=== PATIENT | male | born 1975 | race Caucasian/White ===

== ENCOUNTER 2021-04-17 01:08 | Emergency (ER) | payer OTHER, SELFPAY ==
--- NOTE | ~2021-04-17 | XR_ITS ---
EXAMINATION: XR finger 1st LT min 2V DATE: 04/17/2021 01:38 INDICATION: Left thumb laceration. TECHNIQUE: 3 views of left thumb were obtained. COMPARISON: None. FINDINGS: Bone alignment is normal. No fracture. There is mild osteoarthritis of first carpometacarpa l joint, first metacarpophalangeal joint, and first interphalangeal joint. There is soft tissue swell ing of the thumb. IMPRESSION: 1. Mild polyarticular osteoarthritis. Reviewed, dictated and finalized at location [facility]
[2021-04-17 01:27] VITALS: BP 132/81; PULSE 115; RESP 19; TEMP 36.6; O2SAT 98
[2021-04-17] MEDS: DOXYCYCLINE HYCLATE 100 MG TABLET PO (02:21)
[2021-04-17] MEDS: HYDROcodone/acetaminophen (*CRX) 5-325 MG TABLET 1 TAB PO (02:21)
--- NOTE | 2021-04-17 02:54 | ED.WOUNDLAC ---
HPI - Wound/Laceration General Chief Complaint: Wound/Laceration Stated Complaint: left thumb wound Time Seen by Provider: 04/17/21 01:36 History of Present Illness HPI narrative: Patient is a 45-year-old male who presents ER with swelling to the dorsal aspect of the distal phalanx of the left thumb. Reports 1 week ago he was sharpening a knife when he cut his thumb. He did not develop any swelling until yesterday. He has limited flexion at that joint. No numbness or tingling. Reports clear liquid drainage at times. Last tetanus shot 5 years ago. No fevers or chills or sweats. No streaking up his arm. Review of Systems Review of Systems: All systems reviewed & are unremarkable except as noted in HPI and below Constitutional: Constitutional: Denies chills and Denies fever(s) Musculoskeletal: Musculoskeletal: Denies back pain, Reports arthralgias, Reports joint swelling and Denies muscle cramps Integumentary/Breasts: Skin/Breast: Reports erythema, Denies rash and Denies skin ulcer Neurologic: Denies focal weakness and Denies numbness PMFSH Past Medical History Medical History (Updated 04/17/21 @ 03:02 by Teofilo Garrett MD) GERD (gastroesophageal reflux disease) Surgical History Surgical History (Updated 04/17/21 @ 02:59 by Teofilo Garrett MD) H/O eye surgery Social History Social History (Updated 04/17/21 @ 02:59 by Teofilo Garrett MD) Smoking status: Current every day smoker Exam Narrative: GENERAL: Well-appearing, well-nourished, and in no acute distress. HEAD: Normocephalic, atraumatic. ENT: Mucous membranes moist. HEART: Regular rate and rhythm. Normal peripheral pulses. EXTREMITIES: 2 cm healing laceration over the DIP of the left thumb. There is swelling around this with slight redness. No lymphangitic streaking. Limited flexion at the DIP of the affected finger. SKIN: Warm, dry, no rash. NEURO: Alert and oriented x3. PSYCH: Normal mood and affect. Course Course Emergency Course: A 21-gauge needle was inserted into the soft tissue swelling of the left thumb after thorough cleaning of the area. No pus could be aspirated or expressed from the area. Likely local reaction related to healing versus early infection. No abscess to drain. Will start on doxycycline. Vital Signs Vital signs: Vital Signs Temperature 97.8 F 04/17/21 01:27 Pulse Rate 115 H 04/17/21 01:27 Respiratory Rate 19 04/17/21 01:27 Blood Pressure 132/81 04/17/21 01:27 Pulse Oximetry 98 04/17/21 01:27 Temperature 97.8 F 04/17/21 01:27 Pulse Rate 115 H 04/17/21 01:27 Respiratory Rate 19 04/17/21 01:27 Blood Pressure 132/81 04/17/21 01:27 Pulse Oximetry 98 04/17/21 01:27 MDM - Wound/Laceration Imaging Data My impression: X-ray left thumb: No acute osseous process. Discharge Plan Discharge Clinical Impression: Infected finger laceration Patient Disposition: Home, Self-Care Condition: Stable Instructions: Wound Infection (ED) Additional Instructions: Return to the ER if you have fever over 100.4 ?F, you have red streaking up your hand/arm, your wound is draining thick yellow pus, or you have additional concerns. Is recommend you follow-up with a hand surgeon for further evaluation. 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
[2021-04-17 03:09] VITALS: PULSE 98; RESP 16; O2SAT 99
== END 2021-04-17 03:16 | disposition home or self-care (01) ==
PROVIDERS: Emergency Provider Emergency Medicine
DX: S61.012A Laceration without foreign body of left thumb without damage to nail, initial encounter (principal); L08.9 Local infection of the skin and subcutaneous tissue, unspecified; W26.0XXA Contact with knife, initial encounter
CPT/HCPCS: 73140; 99283; A9270

== ENCOUNTER 2021-04-26 00:06 | Inpatient (IN) | payer OTHER, SELFPAY ==
[2021-04-26] VITALS (15 sets, daily range): BP systolic 101–114; BP diastolic 48–77; PULSE 81–110; RESP 12–21; TEMP 36.1–37; O2SAT 98–100; BMI 24.2
--- NOTE | ~2021-04-26 | XR_ITS ---
EXAMINATION: XR hand LT min 3V DATE: 04/26/2021 01:37 INDICATION: Left thumb cellulitis. TECHNIQUE: 3 views of left hand were obtained. COMPARISON: Left thumb radiographs 04/17/2021 FINDINGS: Bone alignment is normal. No fracture. There is new osteopenia of base of first distal phal anx and head of first proximal phalanx with cortical erosions, consistent with osteomyelitis. There i s mild osteoarthritis of first interphalangeal joint and second and fourth distal interphalangeal justina nts. There is soft tissue swelling of the thumb. IMPRESSION: 1. Acute osteomyelitis involving the base of first distal phalanx and head of first proximal phalanx. Reviewed, dictated and finalized at location A. AND BEVERAGE CHECKER IMPRESSION: 1. Acute osteomyelitis involving the base of first distal phalanx and head of f irst proximal phalanx.
[2021-04-26] MEDS: SODIUM CHLORIDE 0.9% IV 1,000 ML 150 ML IV CONT (00:38)
[2021-04-26 00:56] LABS: Basophils Absolute Auto 0.1 K/mm3 (0.0-0.1); Eosinophils Absolute Auto 0.4 K/mm3 (0-0.3); Eosinophils Percent Auto 3.6 % (0-4.4); Hematocrit 36.5 % (42.0-52.0); Hemoglobin 12.2 g/dL (14.0-18.0); Immature Granulocyte Absolute 0.28 K/mm3 (0.00-0.031); Immature Granulocyte Percent A 2.9 % (0-0.5); Lymphocytes Absolute Auto 2.73 K/mm3 (0.9-3.2); Lymphocytes Percent Auto 28.1 % (18.3-44.2); Mean Corpuscular HGB Conc 33.4 g/dl (32-36); Mean Corpuscular Hemoglobin 30.2 pg (26-34); Mean Corpuscular Volume 90.3 fl (80-100); Mean Platelet Volume 8.5 fl (7.4-10.4); Monocytes Absolute Auto 0.8 K/mm3 (0.1-0.6); Monocytes Percent Auto 8.4 % (2.6-8.5); Neutrophils Absolute Auto 5.4 K/mm3 (1.3-6.7); Platelet Count Result 465 k/mm3 (150-375); Red Blood Count 4.04 M/mm3 (4.6-6.20); Red Cell Distribution Width 11.9 % (11.5-14.5); White Blood Count 9.7 K/mm3 (4.5-10.0)
[2021-04-26 01:11] LABS: Anion Gap 8 mmol/L (8-16); Blood Urea Nitrogen 23 mg/dL (9-20); CRP 7.1 mg/dL (<1.0); Calcium 9.3 mg/dL (8.4-10.2); Carbon Dioxide 30 mmol/L (22-30); Chloride 96 mmol/L (98-107); Estimated CRCL calculation 63 ml/min; Estimated Glomerular Filt Rate > 60; Glucose 124 mg/dL (65-110); Potassium 4.5 mmol/L (3.4-5.0); Sodium 134 mmol/L (137-145)
--- NOTE | 2021-04-26 01:13 | ED.GENADULT ---
HPI - General Adult General Chief complaint: Unspecified Stated complaint: thumb problem Time Seen by Provider: 04/26/21 00:11 Source: patient Mode of arrival: ambulatory Limitations: no limitations History of Present Illness HPI narrative: 45-year-old with no major medical problems here with complaints of pain and swelling and drainage from the left thumb. Patient states that approximately a week or 10 days ago he accidentally cut himself while sharpening a knife. He states he was here on April 17 and was given antibiotic which has not made much difference. He denies any fever or chills. Onset (ago): week(s) (1) Location: upper extremity (Left thumb) Severity: moderate Quality: aching Pain Consistency: constant Relieving factors: none Exacerbating factors: none Associated symptoms: denies other symptoms Treatments prior to arrival: none Related Data Allergies Allergy/AdvReac Type Severity Reaction Status Date / Time No Known Allergies Allergy Verified 04/26/21 00:27 Review of Systems Review of Systems: All systems reviewed & are unremarkable except as noted in HPI and below Constitutional: Constitutional: Reports no additional constitutional complaints Eyes: Eyes: Reports no additional eye complaints ENT: Reports system reviewed and no additional complaints, except as documented Cardiovascular: Cardiovascular: Reports no additional cardiovascular complaints Respiratory: Respiratory: Reports no additional respiratory complaints Gastrointestinal: Gastrointestinal: Reports no additional gastrointestinal complaints Musculoskeletal: Musculoskeletal: Reports as per HPI Integumentary/Breasts: Skin/Breast: Reports as per HPI Neurologic: Reports system reviewed and no additional complaints, except as documented PMFSH Past Medical History Medical History GERD (gastroesophageal reflux disease) Surgical History Surgical History H/O eye surgery Social History Social History Smoking status: Current every day smoker Exam Narrative: GENERAL: Well-appearing, well-nourished, and in no acute distress. HEAD: Normocephalic, atraumatic. EYES: PERRLA and EOMI. ENT: Nares clear, no rhinorrhea or epistaxis. Mucous membranes moist. NECK: Supple. CHEST: Clear to auscultation. No respiratory distress. HEART: Regular rate and rhythm. No murmur heard. Normal peripheral pulses. ABDOMEN: Soft, nontender, nondistended, normal active bowel sounds. EXTREMITIES: Normal range of motion. No edema. left thumb is swollen , tender , unable to bend , drainage . SKIN: Warm, dry, no rash. NEURO: No focal deficits. Alert and oriented x3. PSYCH: Normal mood and affect. Course Course Emergency Course: Inform patient about his lab work. Agreeable for admission discussed with Dr. Rebolledo and agreed to admit patient, will consult plastics in the morning. Vital Signs Vital signs: Vital Signs Temperature 36.6 C 04/26/21 00:16 Pulse Rate 99 04/26/21 00:16 Respiratory Rate 14 04/26/21 00:16 Blood Pressure 113/76 04/26/21 00:16 Pulse Oximetry 98 04/26/21 00:16 Temperature 36.6 C 04/26/21 00:16 Pulse Rate 96 04/26/21 01:04 Respiratory Rate 12 04/26/21 01:04 Blood Pressure 111/72 04/26/21 01:04 Pulse Oximetry 98 04/26/21 01:04 Medical Decision Making Vital Signs Vital Signs: Vital Signs Temperature 36.6 C 04/26/21 00:16 Pulse Rate 99 04/26/21 00:16 Respiratory Rate 14 04/26/21 00:16 Blood Pressure 113/76 04/26/21 00:16 Pulse Oximetry 98 04/26/21 00:16 Temperature 36.6 C 04/26/21 00:16 Pulse Rate 96 04/26/21 01:04 Respiratory Rate 12 04/26/21 01:04 Blood Pressure 111/72 04/26/21 01:04 Pulse Oximetry 98 04/26/21 01:04 Lab Data Result diagrams: 04/26/21 00:44 04/26/21 00:44
--- NOTE | 2021-04-26 03:14 | PM.IMHP ---
H&P: HPI History of Present Illness Date/Time: 04/26/21 03:14 Chief Complaint: Left thumb infection Narrative: 45-year-old male previously healthy who presented to the ER with worsening infection of laceration site on his left thumb. Approximately 04/20/2021 patient cut his thumb while sharpening a knife. He came to the ER on 04/17/2021 had x-ray of his thumb due to erythema. He did not have any active drainage of the thumb. He was prescribed doxycycline for possible infection and [place]. He was referred to hand surgeon for further evaluation. Despite completing most of his course of doxycycline the patient has had continued pain swelling and yellow drainage of the left thumb. He reports that he had taken a over half of the prescription for doxycycline when he got arrested on a warrant and when he was in senior care they took his doxycycline. He did not get his doxycycline back when he was released. He has not had any fevers or chills. He reports moderate to severe pain with movement of the thumb is aching and throbbing. He does snort heroin daily. He reports that he has multiple bad teeth. None of his teeth are currently hurting him. However he was having some tenderness in his ?glands? a few days back. He does not have any significant tenderness to palpation at the time of my evaluation currently. The patient denied any other significant medical history. However nursing staff reported the patient had significant snoring and witnessed apnea. When the later went back and asked the patient about medical history again he stated that he does use a CPAP at home. Review of Systems Review of Systems: 12 systems were reviewed with pertinent positives and negatives per HPI. Except as documented in the HPI, all other systems were reviewed and are negative. [facility] Past Medical History Medical History (Updated 04/26/21 @ 04:44 by Josette Mendosa DO) GERD (gastroesophageal reflux disease) Obstructive sleep apnea Surgical History Surgical History (Updated 04/26/21 @ 04:38 by Josette Mendosa DO) H/O eye surgery At 5 years old correct lazy eye Family History Family History Other No significant family history Social History Social History (Updated 04/26/21 @ 04:39 by Josette Mendosa DO) Social History: He is single and lives alone. 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 He has smoked a half a pack of cigarettes per day since the age of 15. He denies any significant alcohol use. He snorts heroin on a daily basis. Smoking packs per day: 0.5 Smoking cigarettes per day: 10.0 Years smoked: 30 Smoking pack-years: 15.00 Smoking status: Current every day smoker Tobacco type: cigarettes Alcohol intake: never Substance use: current Substance use type: marijuana and heroin Other substance usage details: 1-2x per week Spiritual care concerns: No Meds Home Medications and Allergies Home Medications Medication Instructions Recorded Confirmed Type No Home Medications 04/26/21 04/26/21 History Allergies Allergy/AdvReac Type Severity Reaction Status Date / Time No Known Allergies Allergy Verified 04/26/21 00:27 Vital Signs Vital Signs - 24 hr 04/26/21 00:16 04/26/21 01:04 04/26/21 02:54 Temperature 97.8 F Pulse Rate 99 96 91 Respiratory Rate 14 12 12 Blood Pressure 113/76 111/72 109/65 Pulse Oximetry 98 98 100 Exam Narrative: PHYSICAL EXAM: WEIGHT 65.9 kg BMI 24.9 General: No acute distress, well-developed well-nourished HEENT: Mucous membranes are moist, no oral pharyngeal erythema, pupils are equal and reactive Respiratory: Clear to auscultation bilaterally, no increased work of breathing Cardiovascular: Regular rate, regular rhythm, 2+ bilateral radial pedal pulses Gastrointestinal: Soft, nontender, positive bowel sounds Skin: Dried cracked skin to the tips of the fingers, laceration to the dorsum of the left thumb w
--- NOTE | 2021-04-26 03:22 | ADMGEN ---
This patient, Chun Willis, was admitted to Medical Room 243-. Patient/family oriented to hospital policies and general routines including ID bracelet, bed and alarms, visiting hours, pain management, procedures, bathroom and other care routines, personal items, smoking policy, room service/diet, and visiting hours. Information on how to activate the Rapid Response Team has been discussed. Patient/Family are encouraged to report perceived risks to care and to ask questions if they do not understand what they are told or what they should do.
[2021-04-26] MEDS: MORPHINE SULFATE (*CRX) 4 MG/ML INJ IV PUSH ×2 (03:58→19:55)
[2021-04-26] MEDS: ceFAZolin 500 MG in DEXTROSE 5% IN WATER 50 ML 100 MG IVPB ×3 (03:58→18:10)
[2021-04-26 05:48] LABS: Estimated CRCL calculation 76 ml/min; Estimated Glomerular Filt Rate > 60
--- NOTE | 2021-04-26 13:08 | PM.IMPN ---
Progress Note: A&P Assessment and Plan (1) Cellulitis of left thumb: Code(s): L03.012 - Cellulitis of left finger Status: Acute Assessment and Plan: Presented with pain, erythema, and edema of the left thumb after suffering a laceration to his left thumb 2 weeks ago. Was taking outpatient doxycycline without improvement. Finger x-ray showed mild osteoarthritis and soft tissue swelling of the thumb. Hand x-ray with acute osteomyelitis involving the base of the 1st distal phalanx and head of the 1st proximal phalanx Blood cultures and wound cultures are pending. Continue IV vancomycin and Ancef Appreciate Plastic surgery consultation; debridement being considered Analgesics available as needed (2) Acute osteomyelitis of phalanx of left hand: Code(s): M86.142 - Other acute osteomyelitis, left hand Status: Acute Assessment and Plan: Plan as above (3) Obstructive sleep apnea on CPAP: Code(s): G47.33 - Obstructive sleep apnea (adult) (pediatric); Z99.89 - Dependence on other enabling machines and devices Status: Acute Assessment and Plan: Continue CPAP auto titrated to home settings Subjective Date/time seen: 04/26/21 13:08 Interval history: Date of service: 04/26/2021 Chun Willis is a 45-year-old male history of obstructive sleep apnea who is seen in follow-up for cellulitis of his left thumb having previously failed outpatient antibiotic therapy. He notes no change in his swelling today. He rates his pain is 8/10. He endorses decreased range of motion. He notes that there is been scant purulent drainage from the wound today. He previously was having pain up to his left forearm but this has resolved today and the pain is only in the left thumb. No pain in the 2nd through 5th digits. He thinks the redness in his thumb is unchanged. Aside from his thumb, he denies color changes of his left extremity. No numbness or tingling of his extremities. No nausea, vomiting, fever, chills. No shortness breath, cough, chest pain, or palpitations. Review of Systems Review of Systems: All systems reviewed & are unremarkable except as noted in HPI and below Exam Narrative: Mr. Willis is a well-nourished well-appearing 45-year-old male who is lying semi recumbent in bed. He appears comfortable and is in NARD. Neuro: awake, alert and oriented x4, speech clear, no focal neuro deficits noted HEENMT: normocephalic, atraumatic, EOMI, sclerae anicteric, moist oral mucosa Neck: supple, no lymphadenopathy Respiratory: clear to auscultation bilaterally, nonlabored breathing Cardio: regular rate, regular rhythm with S1-S2 Abdomen: nondistended, normoactive bowel sounds, soft, nontender to palpation Extremities: Left thumb with decreased range of motion. Able to wiggle 2nd through 5th digits. Brisk capillary refill of bilateral upper extremities. Bilateral lower extremities without edema, erythema, or tenderness to palpation, DP pulses 2+ bilaterally Skin: Left thumb has a laceration on the dorsal aspect that is crusted over. The entire thumb is edematous and erythematous. Right upper arm and forearm with birthmark. No rashes or lesions, warm and dry Psych: appropriate mood and affect, judgment and insight intact Objective Data Vital Signs Vital Signs: Vital Signs - 24 hr 04/26/21 00:16 04/26/21 01:04 04/26/21 02:54 Temperature 97.8 F Pulse Rate 99 96 91 Respiratory Rate 14 12 12 Blood Pressure 113/76 111/72 109/65 Pulse Oximetry 98 98 100 04/26/21 04:00 04/26/21 08:00 04/26/21 10:29 Temperature 97.4 F L 98.4 F Pulse Rate 86 90 Respiratory Rate 21 H 20 Blood Pressure 112/58 L 108/57 L Pulse Oximetry 100 100 99 Intake/Output Intake/Output: Intake & Output 04/23/21 04/24/21 04/25/21 04/26/21 23:59 23:59 23:59 23:59 Intake Total 710 Balance 710 Meds/Results Medications: Active Medications Generic Name Dose Route Start L
--- NOTE | 2021-04-26 14:49 | WPDCN ---
Assessment and Plan Assessment and plan (1) Acute osteomyelitis of phalanx of left hand: Onset Date: ~04/2021 Code(s): M86.142 - Other acute osteomyelitis, left hand Status: Acute Assessment and Plan: This patient needs to have the subcutaneous wound carefully inspected and debrided and also have the joint space irrigated. I will present that plan to him today. He is willing and Anesthesia will do the case this afternoon. Pt aware that the bone is Infected and the extensor tendon and other tissue are in jeopardy of severe destruction. He is aware that he will need long-term antibiotics. This joint may become permanently stiff and. He may lose function particularly in the extensor tendon. He will also need to be here for several days. 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 Around April 10 he sustained a laceration to the dorsum of his left thumb at the IP joint. Apparently he was sharpening a knife. He did not seek attention for this until about April 17 when he presented to the emergency room with signs of infection. He was started on some doxycycline apparently was up-to-date on his Tdap. This thumb worsened after he had taken about half of his doxycycline and he re-presented to the ER and was admitted today X-rays, which I have reviewed, taken on those 2 visits show progression of the infection to involved in the bone and he has early osteomyelitis as shown on Kunal x-rays and as read by Dr. Tinoco. The thumb is swollen. It is relatively stiff at the IP joint. There is just a little erythema. There is some drainage and some blistering. The CRP is slightly elevated. WBC is within normal range. Cultures from the exudate are pending. The patient apparently uses CPAP at home. He lives alone. He has a 15 pack-year history of smoking cigarettes. He says he snorts heroin daily. Currently is on IV vancomycin and cefepime PMF Past Medical History Medical History (Updated 04/26/21 @ 15:00 by Larry Maloney MD) GERD (gastroesophageal reflux disease) Obstructive sleep apnea Surgical History Surgical History (Updated 04/26/21 @ 04:38 by Josette Mendosa DO) H/O eye surgery At 5 years old correct lazy eye Family History Family History Other No significant family history Social History Social History (Updated 04/26/21 @ 04:39 by Josette Mendosa DO) Social History: He is single and lives alone. 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 He has smoked a half a pack of cigarettes per day since the age of 15. He denies any significant alcohol use. He snorts heroin on a daily basis. Smoking packs per day: 0.5 Smoking cigarettes per day: 10.0 Years smoked: 30 Smoking pack-years: 15.00 Smoking status: Current every day smoker Tobacco type: cigarettes Alcohol intake: never Substance use: current Substance use type: marijuana and heroin Other substance usage details: 1-2x per week Spiritual care concerns: No Meds Home Medications and Allergies Home Medications Medication Instructions Recorded Confirmed Type No Home Medications 04/26/21 04/26/21 History Allergies Allergy/AdvReac Type Severity Reaction Status Date / Time No Known Allergies Allergy Verified 04/26/21 00:27 Vital Signs Vital Signs - 24 hr 04/26/21 00:16 04/26/21 01:04 04/26/21 02:54 Temperature 97.8 F Pulse Rate 99 96 91 Respiratory Rate 14 12 12 Blood Pressure 113/76 111/72 109/65 Pulse Oximetry 98 98 100 04/26/21 04:00 04/26/21 08:00 04/26/21 10:29 Temperature 97.4 F L 98.4 F Pulse Rate 86 90 Respiratory Rate 21 H 20 Blood Pressure 112/58 L 108/57 L Pulse Oximetry 100 100 99 04/26/21 12:00 Temperatu
--- NOTE | 2021-04-26 15:03 | WPDANESEPPF ---
Anes - Initial Pre Proc Eval Procedure: Operation Date: 04/26/21 16:45 Proposed Procedures p Incision and Drainage Left Thumb - Larry Maloney MD Date/Time: 04/26/21 15:03 Surgeon: Angelita Piña PA-C Pre Op Diagnosis: Left Thumb Cellulitis Patient Data Age: 45 Gender: M Height: 1.63 m Weight: 64 kg Last Vital Signs Temp 37.0 C 04/26/21 12:00 Pulse 85 04/26/21 12:00 Resp 16 04/26/21 12:00 BP 114/59 L 04/26/21 12:00 Pulse Ox 98 04/26/21 12:00 Allergies Allergy/AdvReac Type Severity Reaction Status Date / Time No Known Allergies Allergy Verified 04/26/21 00:27 Home Medications Medication Instructions Recorded Confirmed Type No Home Medications 04/26/21 04/26/21 History Laboratory Tests 04/26/21 04/26/21 04/26/21 00:44 00:44 05:03 WBC 9.7 K/mm3 K/mm3 (4.5-10.0) RBC 4.04 M/mm3 L M/mm3 (4.6-6.20) Hgb 12.2 g/dL L g/dL (14.0-18.0) Hct 36.5 % L % (42.0-52.0) MCV 90.3 fl fl (80-100) MCH 30.2 pg pg (26-34) MCHC 33.4 g/dl g/dl (32-36) RDW 11.9 % % (11.5-14.5) Plt Count 465 k/mm3 H k/mm3 (150-375) MPV 8.5 fl fl (7.4-10.4) Immature Gran % (Auto) 2.9 % H % (0-0.5) Neut % (Auto) 56.0 % % (45.5-73.1) Lymph % (Auto) 28.1 % % (18.3-44.2) [place] % (Auto) 8.4 % % (2.6-8.5) Eos % (Auto) 3.6 % % (0-4.4) Baso % (Auto) 1.0 % % (0.2-1.2) Lymph # (Auto) 2.73 K/mm3 K/mm3 (0.9-3.2) [place] # (Auto) 0.8 K/mm3 H K/mm3 (0.1-0.6) Eos # (Auto) 0.4 K/mm3 H K/mm3 (0-0.3) Baso # (Auto) 0.1 K/mm3 K/mm3 (0.0-0.1) Abs Immat Gran (auto) 0.28 K/mm3 H K/mm3 (0.00-0.031) Absolute Neuts (auto) 5.4 K/mm3 K/mm3 (1.3-6.7) Absolute Nucleated RBC 0.0 K/mm3 K/mm3 (0.0-0.012) Nucleated RBC % 0.0 % % (0.0-0.2) Sodium 134 mmol/L L mmol/L (137-145) Potassium 4.5 mmol/L mmol/L (3.4-5.0) Chloride 96 mmol/L L mmol/L (98-107) Carbon Dioxide 30 mmol/L mmol/L (22-30) Anion Gap 8 mmol/L mmol/L (8-16) BUN 23 mg/dL H mg/dL (9-20) Creatinine 1.10 mg/dL mg/dL 0.90 mg/dL mg/dL (0.7-1.3) (0.7-1.3) Estim Creat Clear Calc 63 ml/min ml/min 76 ml/min ml/min Estimated GFR > 60 > 60 (59 - ) (59 - ) Glucose 124 mg/dL H mg/dL (65-110) Calcium 9.3 mg/dL mg/dL (8.4-10.2) C-Reactive Protein 7.1 mg/dL H mg/dL (<1.0) Patient hx anesthesia problems: none Family hx anesthesia problems: none Results Review: All pre-operative results and documents have been reviewed as part of the pre-operative evaluation. [facility] Past Medical History Medical History (Updated 04/26/21 @ 15:00 by Larry Maloney MD) GERD (gastroesophageal reflux disease) Obstructive sleep apnea Surgical History Surgical History (Updated 04/26/21 @ 04:38 by Josette Mendosa DO) H/O eye surgery At 5 years old correct lazy eye Family History Family History Other No significant family history Social History Social History (Updated 04/26/21 @ 04:39 by Josette Mendosa DO) Social History: He is single and lives alone. 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 He has smoked a half a pack of cigarettes per day since the age of 15. He denies any significant alcohol use. He snorts heroin on a daily basis. Smoking packs per day: 0.5 Smoking cigarettes per day: 10.0 Years smoked: 30 Smoking pack-years: 15.00 Smoking status: Current every day smoker Tobacco type: cigarettes Alcohol intake: never Substance use: current Substance use type: marijuana and heroin Other substance usage details: 1-2x per week Spiritual care concerns: No Anes - Eval Final PreProcedure Day of Procedu
--- NOTE | 2021-04-26 15:22 | PC.NURSE ---
To OR per wheelchair, IV RFA. Report given to Bo CORNEJO .
[2021-04-26] MEDS: LACTATED RINGERS 1,000 ML 30 ML IV CONT (15:35)
--- NOTE | 2021-04-26 15:52 | WPDHPUPDATE1 ---
History and Physical Update Update Date/Time: 04/26/21 15:52 History and Physical has been reviewed, including an updated exam of the patient. There are NO changes in the patient's condition. Risks, benefits, and alternatives have been discussed and questions answered. Patient agrees to proceed with procedure.
[2021-04-26] MEDS: LIDO 1%/EPINEPHRINE/PF 1:200,000 30 ML VIAL 5 ML XX (16:23)
[2021-04-26] MEDS: BACITRACIN OINTMENT 15 GM TUBE 1 APPLIC TOPICAL (16:25)
--- NOTE | 2021-04-26 16:50 | W.PM.PROC2 ---
Procedure Note - Detailed Date of Procedure 04/26/21 Pre-op Diagnosis Septic left thumb IPJ with osteomyelitis Post-op Diagnosis same Procedure Performed Drainage of septic IP joint left thumb and excisional debridement of nonviable subcutaneous and tendinous tissue left thumb 3 cm Surgeon Larry Maloney MD Anesthesia MAC and local Findings Septic joint and nonviable subcutaneous and tendinous tissue Description of Procedure The thumb was marked on the patient in the holding area. The Anesthesia staff had seen him and an IV was already running from the floor. We decided to try to do this under local anesthetic as much as possible patient agreed to that. He was taken to the operating room and placed supine on the operating table. Eyes hand was positioned on the hand table. He was given some sedation. This allowed easy application of of 1% lidocaine with epinephrine to the base of the thumb and superficial branch of the radial nerve and also digital block. The tourniquet was utilized at 250 mmHg. A curving incision was made on the distal and proximal phalanges of this thumb passing through the draining wound site. Skin flaps were elevated to both sides.. There was necrotic tissue. The extensor tendon had been lacerated and was opened over the interphalangeal joint. Most of the tendon was intact and functional. The margins of the tendon were excised. The joint capsule was opened enough to allow irrigation into the joint. Nonviable subcutaneous tissue from all margins were debrided with scissors. The site was irrigated with about 500 milliliter of saline. A 1/2 inch iodoform wick was placed into the joint and under the margins of the skin flaps. That is a single strip approximately 2-1/2 inches long. This not tightly packed. No cultures were taken some are already pending. The tourniquet was released and we observed for any significant bleeding and there was none. A bulky Kerlix sponge dressing was applied with tape. The patient was awakened and transferred to the recovery room in stable condition Estimated Blood Loss 3 Tourniquet Time 12 Drains No Packing Yes Pathology none sent Complications No immediate complications Condition stable Disposition PACU
--- NOTE | 2021-04-26 17:09 | SUR.PHASEI ---
PT RESTING QUIETLY. AWAKENS EASILY. DENIES PAIN OR NAUSEA.
--- NOTE | 2021-04-26 17:21 | PC.NURSE ---
Returned from OR per stretcher. Report received from Deanna .
[2021-04-26] MEDS: LORazepam INJ (*CRX) 2 MG/ML VIAL 0.5 MG IV PUSH ×2 (18:10→21:11)
[2021-04-26] MEDS: KETOROLAC 30 MG/ML VIAL (*BKC) IV PUSH (20:54)
[2021-04-27] VITALS (8 sets, daily range): BP systolic 103–129; BP diastolic 61–91; PULSE 56–115; RESP 14–28; TEMP 36.1–37.2; O2SAT 98–100
[2021-04-27] MEDS: ceFAZolin 500 MG in DEXTROSE 5% IN WATER 50 ML 100 MG IVPB (02:25)
[2021-04-27 05:23] LABS: Basophils Absolute Auto 0.1 K/mm3 (0.0-0.1); Basophils Percent Auto 0.8 % (0.2-1.2); Eosinophils Absolute Auto 0.3 K/mm3 (0-0.3); Eosinophils Percent Auto 2.1 % (0-4.4); Hematocrit 39.2 % (42.0-52.0); Immature Granulocyte Absolute 0.24 K/mm3 (0.00-0.031); Lymphocytes Absolute Auto 2.29 K/mm3 (0.9-3.2); Lymphocytes Percent Auto 19.2 % (18.3-44.2); Mean Corpuscular HGB Conc 33.2 g/dl (32-36); Mean Corpuscular Hemoglobin 30.6 pg (26-34); Mean Corpuscular Volume 92.2 fl (80-100); Mean Platelet Volume 9.4 fl (7.4-10.4); Monocytes Absolute Auto 0.7 K/mm3 (0.1-0.6); Monocytes Percent Auto 5.5 % (2.6-8.5); Neutrophils Absolute Auto 8.4 K/mm3 (1.3-6.7); Neutrophils Percent Auto 70.4 % (45.5-73.1); Platelet Count Result 501 k/mm3 (150-375); Red Blood Count 4.25 M/mm3 (4.6-6.20); Red Cell Distribution Width 11.9 % (11.5-14.5); White Blood Count 11.9 K/mm3 (4.5-10.0)
[2021-04-27 05:39] LABS: Anion Gap 6 mmol/L (8-16); Blood Urea Nitrogen 15 mg/dL (9-20); CRP 3.7 mg/dL (<1.0); Calcium 9.8 mg/dL (8.4-10.2); Carbon Dioxide 25 mmol/L (22-30); Chloride 101 mmol/L (98-107); Estimated CRCL calculation 85 ml/min; Estimated Glomerular Filt Rate > 60; Glucose 99 mg/dL (65-110); Potassium 4.3 mmol/L (3.4-5.0); Sodium 132 mmol/L (137-145)
[2021-04-27] MEDS: LORazepam INJ (*CRX) 2 MG/ML VIAL 1 MG IV PUSH (08:00)
--- NOTE | 2021-04-27 09:00 | P.PNAN_ITS ---
Anes - Prog Note Post-Op Date/Time: 04/27/21 09:00 Cardiovascular status: normal Respiratory status: normal Airway patency: baseline Mental status: baseline Post-Op hydration status: normal Vital Signs: Last Vital Signs Temp 36.6 C 04/27/21 03:17 Pulse 88 04/27/21 03:17 Resp 16 04/27/21 03:17 BP 103/63 04/27/21 03:17 Pulse Ox 99 04/27/21 03:17 Pain Score (VAS): 0 I/O: Intake & Output 04/26/21 04/27/21 04/27/21 23:59 07:59 15:59 Intake Total 400 222 Balance 400 222 Laboratory Tests 04/27/21 04:45 04/27/21 04:45 04/27/21 04/27/21 04:45 04:45 WBC 11.9 H RBC 4.25 L Hgb 13.0 L Hct 39.2 L MCV 92.2 MCH 30.6 MCHC 33.2 RDW 11.9 Plt Count 501 H MPV 9.4 Immature Gran % (Auto) 2.0 H Neut % (Auto) 70.4 Lymph % (Auto) 19.2 [place] % (Auto) 5.5 Eos % (Auto) 2.1 Baso % (Auto) 0.8 Lymph # (Auto) 2.29 [place] # (Auto) 0.7 H Eos # (Auto) 0.3 Baso # (Auto) 0.1 Abs Immat Gran (auto) 0.24 H Absolute Neuts (auto) 8.4 H Absolute Nucleated RBC 0.0 Nucleated RBC % 0.0 % Immature Plt Fraction 2.0 Sodium 132 L Potassium 4.3 Chloride 101 Carbon Dioxide 25 Anion Gap 6 L BUN 15 D Creatinine 0.80 Estim Creat Clear Calc 85 Estimated GFR > 60 Glucose 99 Calcium 9.8 C-Reactive Protein 3.7 H Microbiology 04/26/21 00:44 Blood Blood Culture - Preliminary 04/26/21 00:44 Blood Blood Culture - Preliminary 04/26/21 03:50 Thumb Left Wound Culture - Preliminary Post-procedural complaints: none Patient Feedback: Patient satisfied with anesthetic care.
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
--- NOTE | 2021-04-27 11:11 | PC.NURSE ---
Supervisory Civil Engineer entered room this AM to administer IV vanco, observed pt has pulled IV out and was laying on bed, New IV placed to right wrist, IVP Ativan administered per pt request im having withdraws, Im going to go crazy , IVP Vanco started. Supervisory Civil Engineer walked by room 1hr later observed blood all over the floor, bed, sheets. Observed PT has D/C IV tubing from IV Catheter, 3/4 way dislodged catheter but not completely removed which was allowing blood to drip all over. IV completed D/C per law writer pressure applied. Pt is very drowsy will not keep eyes open only responds to name with a moan. Pt asked if he had taken anything he denies, but room is disheveled, personal belonging thrown out all over the floor, food all over floor. Bed changed and gown changed pt sleep through task, VSS. Angelita VACA called came to see pt. made aware of 2nd IV D/C by pt this AM, pt no wanting to wake up but vitals are stable and he will respond to name with moan. She reports will see about changing abx to PO along with pain medications, no need to place another IV at this time as pt will likely D/C. Angelita reports will speak with Dr. Kruse and Consult Dr. Montoya.
[2021-04-27] MEDS: CEPHALEXIN 500 MG CAPSULE PO (12:46)
[2021-04-27] MEDS: LORazepam (*CRX) 0.5 MG TABLET PO (13:05)
--- NOTE | 2021-04-27 13:29 | WPDINFPN2 ---
Progress Note: A&P Assessment and Plan (1) Acute osteomyelitis of phalanx of left hand: Onset Date: ~04/2021 Code(s): M86.142 - Other acute osteomyelitis, left hand Status: Acute Assessment and Plan: Septic arthritis L 1st finger, Grp A Strep. REC Ancef until CRP normalizes, then oral cephalexin 1 gram q6 hours through 05/23/21. Not a candidate for home/outpatient IV access. Call if Qs Subjective Date/time seen: 04/27/21 13:29 Objective Data Vital Signs Vital Signs: Vital Signs - 24 hr 04/26/21 15:27 04/26/21 16:43 04/26/21 17:00 Temperature 36.3 C L 36.1 C L Pulse Rate 87 90 84 Respiratory Rate 18 14 17 Blood Pressure 104/57 L 107/75 106/77 Pulse Oximetry 100 100 99 04/26/21 17:25 04/26/21 17:45 04/26/21 19:24 Temperature 36.1 C L 36.3 C L 36.6 C Pulse Rate 81 92 110 H Respiratory Rate 18 16 18 Blood Pressure 101/66 105/69 112/66 Pulse Oximetry 100 99 100 04/26/21 21:42 04/26/21 23:38 04/27/21 03:17 Temperature 37.0 C 36.6 C Pulse Rate 94 88 Respiratory Rate 18 16 Blood Pressure 105/48 L 103/63 Pulse Oximetry 99 99 99 Intake/Output Intake/Output: Intake & Output 04/24/21 04/25/21 04/26/21 04/27/21 23:59 23:59 23:59 23:59 Intake Total 1230 322 Balance 1230 322 Meds/Results Medications: Active Medications Generic Name Dose Route Start Last Admin Trade Name Freq PRN Reason Stop Dose Admin Acetaminophen 650 mg 04/26/21 01:31 Acetaminophen 325 Mg Tablet PO Q4H PRN Mild Pain (1-3) or Fever Hydrocodone Bitart/Acetaminophen 1 tab 04/27/21 10:12 Hydrocodone/Acetaminophen (*Crx) 5-325 Mg Tablet PO Q6H PRN Pain Rated 4-6 Cephalexin HCl 500 mg 04/27/21 12:00 04/27/21 12:46 Cephalexin 500 Mg Capsule PO 500 mg Q6HR ZULEMA Administration Vancomycin HCl 1,000 mg in 250 mls @ 250 mls/hr 11/19/21 07:00 04/27/21 11:03 Vancomycin 1,000 Mg/D5w 250 Ml IVPB Infused Q12H ZULEMA Infusion Lorazepam 0.5 mg 04/27/21 12:58 04/27/21 13:05 Lorazepam (*Crx) 0.5 Mg Tablet PO 0.5 mg Q8H PRN Administration Withdrawal Ondansetron HCl 4 mg 04/26/21 01:31 Ondansetron Inj 4 Mg/2 Ml Vial IV PUSH Q4H PRN Nausea Oxycodone HCl 5 mg 04/27/21 10:12 Oxycodone Hcl (*Crx) 5 Mg Tab Ir PO ONCE PRN Pain 7-10 Radiology Results: ITS Impressions Hand X-Ray 04/26/21 08:47 IMPRESSION: 1. Acute osteomyelitis involving the base of first distal phalanx and head of first proximal phalanx. Labs Labs: Laboratory Results - last 24 hr 04/27/21 04/27/21 04:45 04:45 WBC 11.9 H RBC 4.25 L Hgb 13.0 L Hct 39.2 L MCV 92.2 MCH 30.6 MCHC 33.2 RDW 11.9 Plt Count 501 H MPV 9.4 Immature Gran % (Auto) 2.0 H Neut % (Auto) 70.4 Lymph % (Auto) 19.2 [place] % (Auto) 5.5 Eos % (Auto) 2.1 Baso % (Auto) 0.8 Lymph # (Auto) 2.29 [place] # (Auto) 0.7 H Eos # (Auto) 0.3 Baso # (Auto) 0.1 Abs Immat Gran (auto) 0.24 H Absolute Neuts (auto) 8.4 H Absolute Nucleated RBC 0.0 Nucleated RBC % 0.0 % Immature Plt Fraction 2.0 Sodium 132 L Potassium 4.3 Chloride 101 Carbon Dioxide 25 Anion Gap 6 L BUN 15 D Creatinine 0.80 Estim Creat Clear Calc 85 Estimated GFR > 60 Glucose 99 Calcium 9.8 C-Reactive Protein 3.7 H
[2021-04-27 13:40] LABS: Hepatitis B Surface Antigen Negative (Negative)
[2021-04-27 13:46] LABS: HAV RESULT Negative (Negative); Hepatitis B Core IgM Result Negative (Negative)
[2021-04-27 13:49] LABS: HIV 1/2 Ab P24 Ag Result Negative (Negative)
[2021-04-27 13:58] LABS: Hepatitis C Virus Antibody Negative (Negative)
--- NOTE | 2021-04-27 15:04 | PC.NURSE ---
To OR per bed, NO IV present RN aware. Report given to
--- NOTE | 2021-04-27 15:11 | WPDPN ---
Progress Note: A&P Assessment and Plan (1) Acute osteomyelitis of phalanx of left hand: Onset Date: ~04/2021 Code(s): M86.142 - Other acute osteomyelitis, left hand Status: Acute Additional Plan To OR today for irrigation and debridement and complete dressing change. Time Spent With Patient Time with patient: less than 15 minutes Subjective Date/time seen: 04/27/21 15:11 Interval history: Pt remains very somnolent, asking for withdrawal medicine. He is a daily heroine user. Appreciate Dr Montoya's eval. and recommendation for antibiotic treatment in this pt who is not a candidate for home IV tx. Will need repeat CRP. Gp A Strep. Dressing change reveals bloody serous drainage on qauze. Wick remains within the joint space. Very tender. Wound margins macerated and purpuric. Will return to OR today for further debridement and irrigation. Objective Data Vital Signs Vital Signs: Vital Signs - 24 hr 04/26/21 15:27 04/26/21 16:43 04/26/21 17:00 Temperature 97.4 F L 97.0 F L Pulse Rate 87 90 84 Respiratory Rate 18 14 17 Blood Pressure 104/57 L 107/75 106/77 Pulse Oximetry 100 100 99 04/26/21 17:25 04/26/21 17:45 04/26/21 19:24 Temperature 96.9 F L 97.3 F L 97.9 F Pulse Rate 81 92 110 H Respiratory Rate 18 16 18 Blood Pressure 101/66 105/69 112/66 Pulse Oximetry 100 99 100 04/26/21 21:42 04/26/21 23:38 04/27/21 03:17 Temperature 98.6 F 97.9 F Pulse Rate 94 88 Respiratory Rate 18 16 Blood Pressure 105/48 L 103/63 Pulse Oximetry 99 99 99 Intake/Output Intake/Output: Intake & Output 04/24/21 04/25/21 04/26/21 04/27/21 23:59 23:59 23:59 23:59 Intake Total 1230 322 Balance 1230 322 Meds/Results Medications: Active Medications Generic Name Dose Route Start Last Admin Trade Name Freq PRN Reason Stop Dose Admin Acetaminophen 650 mg 04/26/21 01:31 Acetaminophen 325 Mg Tablet PO Q4H PRN Mild Pain (1-3) or Fever Hydrocodone Bitart/Acetaminophen 1 tab 04/27/21 10:12 Hydrocodone/Acetaminophen (*Crx) 5-325 Mg Tablet PO Q6H PRN Pain Rated 4-6 Cephalexin HCl 1,000 mg 04/27/21 18:00 Cephalexin 500 Mg Capsule PO 05/23/21 23:59 Q6HR ZULEMA Lorazepam 0.5 mg 04/27/21 12:58 04/27/21 13:05 Lorazepam (*Crx) 0.5 Mg Tablet PO 0.5 mg Q8H PRN Administration Withdrawal Ondansetron HCl 4 mg 04/26/21 01:31 Ondansetron Inj 4 Mg/2 Ml Vial IV PUSH Q4H PRN Nausea Oxycodone HCl 5 mg 04/27/21 10:12 Oxycodone Hcl (*Crx) 5 Mg Tab Ir PO ONCE PRN Pain 7-10 Radiology Results: ITS Impressions Hand X-Ray 04/26/21 08:47 IMPRESSION: 1. Acute osteomyelitis involving the base of first distal phalanx and head of first proximal phalanx. Labs Labs: Laboratory Results - last 24 hr 04/27/21 04/27/21 04/27/21 04:45 04:45 12:45 WBC 11.9 H RBC 4.25 L Hgb 13.0 L Hct 39.2 L MCV 92.2 MCH 30.6 MCHC 33.2 RDW 11.9 Plt Count 501 H MPV 9.4 Immature Gran % (Auto) 2.0 H Neut % (Auto) 70.4 Lymph % (Auto) 19.2 [place] % (Auto) 5.5 Eos % (Auto) 2.1 Baso % (Auto) 0.8 Lymph # (Auto) 2.29 [place] # (Auto) 0.7 H Eos # (Auto) 0.3 Baso # (Auto) 0.1 Abs Immat Gran (auto) 0.24 H Absolute Neuts (auto) 8.4 H Absolute Nucleated RBC 0.0 Nucleated RBC % 0.0 % Immature Plt Fraction 2.0 Sodium 132 L Potassium 4.3 Chloride 101 Carbon Dioxide 25 Anion Gap 6 L BUN 15 D Creatinine 0.80 Estim Creat Clear Calc 85 Estimated GFR > 60 Glucose 99 Calcium 9.8 C-Reactive Protein 3.7 H Hepatitis A IgM Ab Negative Hep Bs Antigen Negative Hep B Core IgM Ab Negative Hepatitis C Ab Screen Negative HIV 1&2 Ab/P24 Ag 4thGn 04/27/21 12:45 WBC RBC Hgb Hct MCV MCH MCHC RDW Plt Count MPV Immature Gran % (Auto) Neut % (Auto) Lymph % (Auto) [place] % (Auto) Eos % (Aut
[2021-04-27] MEDS: LACTATED RINGERS 1,000 ML 30 ML IV CONT (15:21)
--- NOTE | 2021-04-27 17:15 | WPDHPUPDATE1 ---
History and Physical Update Update Date/Time: 04/27/21 17:15 History and Physical has been reviewed, including an updated exam of the patient. There are NO changes in the patient's condition. Risks, benefits, and alternatives have been discussed and questions answered. Patient agrees to proceed with procedure.
[2021-04-27] MEDS: LIDO 1%/EPINEPHRINE 1:100,000 50 ML VIAL 10 ML INFILTRATE (17:33)
--- NOTE | 2021-04-27 17:59 | W.PM.PROC2 ---
Procedure Note - Detailed Date of Procedure 04/27/21 Pre-op Diagnosis Septic left thumb IP joint and osteomyelitis Post-op Diagnosis same Procedure Performed 2nd wound washout and dressing change under anesthesia left thumb Surgeon Larry Maloney MD Anesthesia MAC and local Findings Open IP joint with partial laceration of the extensor pollicis longus and macerated skin margins Description of Procedure The patient's thumb was marked in the holding area. He was taken to the operating room placed supine on the operating table time-out was held and confirmed he was given IV sedation and the left upper extremity was prepped and draped in usual fashion. The tourniquet was inflated 250 mmHg. 1% lidocaine with epinephrine was infiltrated around the thumb for complete anesthesia. The dressings had already been removed. The joint was opened skin flaps were elevated and the site was copiously irrigated and wiped with Ray-Yao sponges. There was no obvious pus. There was no additional soft tissue that needed to be surgically removed. The wound was irrigated with a 1000 milliliter of saline. The wound was dressed with Mepilex Ag sponge and bulky gauze wrap. He is discharged from the operating room stable condition. Estimated Blood Loss 3 Tourniquet Time 16 Drains No Packing Yes Pathology none sent Complications No immediate complications Condition stable Disposition PACU
--- NOTE | 2021-04-27 18:21 | PC.NURSE ---
Returned from OR per Bed. Report received from Andre. Dry dressing in place to left thumb, pt resting
--- NOTE | 2021-04-27 18:28 | PC.NURSE ---
Pt states he is leaving AMA he is awaiting ride, Dr. Gates made aware
--- NOTE | 2021-04-27 18:37 | PC.NURSE ---
PT refused 1800 medications.
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
--- NOTE | 2021-04-27 19:32 | PC.NURSE ---
Patient notified of risks of leaving AMA. Dr. Gates notified. Follow up instructions given to patient. Patient signed AMA form.
== END 2021-04-27 19:32 | disposition left against medical advice (07) | DRG 316 ==
LOC: ANHED 01:29 → ANH2MED 02:14
PROVIDERS: Physician Assistant; Plastic Surgery; Admitting Provider Internal Medicine; Emergency Provider Family Medicine; PCP Emergency Medicine; Visit Provider Family Medicine
PROC: 0LB80ZZ Excision of Left Hand Tendon, Open Approach (ICD-10-PCS; principal; 2021-04-26 16:45)
PROC: 3E1U38Z Irrigation of Joints using Irrigating Substance, Percutaneous Approach (ICD-10-PCS; principal; 2021-04-27 16:30)
DX: M00.242 Other streptococcal arthritis, left hand (principal); B95.0 Streptococcus, group A, as the cause of diseases classified elsewhere; M86.142 Other acute osteomyelitis, left hand; S61.012A Laceration without foreign body of left thumb without damage to nail, initial encounter; L03.012 Cellulitis of left finger; K21.9 Gastro-esophageal reflux disease without esophagitis; G47.33 Obstructive sleep apnea (adult) (pediatric); F17.210 Nicotine dependence, cigarettes, uncomplicated; F11.10 Opioid abuse, uncomplicated
CPT/HCPCS: 36415; 73130; 80048; 80074; 82565; 85025; 85055; 86140; 86703; 87040; 87070; 87147; 87205; 96365; 96367; 96375; 99285; A9270; G0378; G0379; G0432; J0131; J0690; J1885; J2060; J2250; J2270; J2704; J3010; J3370; J7030; J7120

== ENCOUNTER 2023-06-23 05:39 | Emergency (ER) | payer OTHER, SELFPAY ==
[2023-06-23 05:42] VITALS: BP 120/76; PULSE 111; RESP 20; TEMP 36.2; O2SAT 100
--- NOTE | 2023-06-23 07:15 | PC.NURSE ---
Sue from lab called to report there was only enough urine to run the UA. Pt primary nurse made aware.
[2023-06-23 07:18] LABS: Appearance Urine Clear (Clear); Bilirubin Urine Negative (Negative); Blood Urine Negative (Negative); Color Urine Yellow (Yellow); Glucose Urine UA Negative (Negative); Ketones Urine Trace mg/dL (Negative); Leukocyte Esterase Ur Negative LEU/UL (Negative); Nitrate Urine Negative (Negative); Protein Urine Negative (Negative); Specific Grav Ur 1.029 (1.001-1.035); Urobilinogen Urine 0.2 mg/dL (<2.0); pH Urine 5.5 (5.0-9.0)
[2023-06-23 07:38] LABS: Add Urine Microscopic? NO
--- NOTE | 2023-06-23 08:23 | ED.GENADULT ---
HPI - General Adult General Chief complaint: Urogenital-Male Stated complaint: STD check, burning with urination Time Seen by Provider: 06/23/23 06:55 History of Present Illness HPI narrative: 47-year-old male presents to the emergency department for evaluation of burning with urination. Patient states symptoms have been ongoing for the last 2 months. Patient reports approximately 2 months ago his partner was diagnosed with Trichomonas but he stated ?I just did not believe her . Patient denies any penile discharge. Patient denies any prior history of STI. Patient denies any other associated symptoms. Related Data Home Medications Medication Instructions Recorded Confirmed No Home Medications 04/26/21 04/26/21 Allergies Allergy/AdvReac Type Severity Reaction Status Date / Time No Known Allergies Allergy Verified 06/23/23 05:45 Review of Systems Review of Systems: All systems reviewed & are unremarkable except as noted in HPI and below PMFSH Past Medical History Medical History (Updated 06/23/23 @ 18:40 by Main Rodney MD) GERD (gastroesophageal reflux disease) Obstructive sleep apnea Surgical History Surgical History (Updated 04/26/21 @ 04:38 by Josette Mendosa DO) H/O eye surgery At 5 years old correct lazy eye Family History Family History Other No significant family history Social History Social History (Updated 04/26/21 @ 04:39 by Josette Mendosa DO) Social History: He is single and lives alone. 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 He has smoked a half a pack of cigarettes per day since the age of 15. He denies any significant alcohol use. He snorts heroin on a daily basis. Smoking packs per day: 0.5 Smoking cigarettes per day: 10.0 Years smoked: 30 Smoking pack-years: 15.00 Smoking status: Current every day smoker Tobacco type: cigarettes Alcohol intake: never Substance use: current Substance use type: marijuana and heroin Other substance usage details: 1-2x per week Spiritual care concerns: No Exam Narrative: APPEARANCE: Well appearing, no pain, no distress, well-nourished. HEAD: normocephalic, atraumatic. EYES: PERRLA/EOMI, conjunctivae clear. NOSE: Normal no drainage NECK: Supple. No adenopathy, no masses. RESPIRATORY: Airway patent, respirations nonlabored. Clear to auscultation bilaterally, no rales, rhonchi, wheezing. CARDIOVASCULAR: Regular rate and rhythm without murmurs rubs or gallops. ABDOMINAL: Soft, nontender, nondistended, normal bowel sounds MUSCULOSKELETAL: Moves all extremities. Strength/ROM intact, No edema, No calf tenderness. NEURO: Alert. Cranial nerves II through XII intact. Grossly intact SKIN: Warm, dry. Normal Color PSYCHIATRIC: Normal affect/mood. Course Course Emergency Course: 47-year-old male presenting emergency department for evaluation of burning with urination. Patient states he was exposed to Trichomonas. This was negative. Patient eloped prior to all of his labs resulting. Patient's GC chlamydia was negative Vital Signs Vital signs: Vital Signs Temperature 97.1 F L 06/23/23 05:42 Pulse Rate 111 H 06/23/23 05:42 Respiratory Rate 06/23/23 05:42 Blood Pressure 120/76 06/23/23 05:42 Pulse Oximetry 100 06/23/23 05:42 Oxygen Delivery Room Air 06/23/23 05:42 Temperature 97.1 F L 06/23/23 05:42 Pulse Rate 111 H 06/23/23 05:42 Respiratory Rate 06/23/23 05:42 Blood Pressure 120/76 06/23/23 05:42 Pulse Oximetry 100 06/23/23 05:42 Oxygen Delivery Room Air 06/23/23 05:42 Medical Decision Making Vital Signs Vital Signs: Vital Signs Temperature 97.1 F L 06/23/23 05:42 Pulse Rate 111 H 06/23/23 05:42 Respiratory Rate 06/23/23 05:42 Blood Pressure 120/76 06/23/23 05:42 Pulse Oximetry 100 06/23/23 05:42 Oxygen Delivery Room Air 06/23/23 05:42 Temperature 97.1 F L 06/23/23 0
[2023-06-23 10:22] LABS: Trichomonas Vag PCR NOT DETECTED (NOT DETECTE)
[2023-06-23 10:47] LABS: Chlamydia trachomatis NOT DETECTED (NOT DETECTE); Neisseria gonorrhoeae PCR NOT DETECTED (NOT DETECTE)
== END 2023-06-23 10:39 | disposition left against medical advice (07) ==
PROVIDERS: Emergency Medicine; Emergency Provider Emergency Medicine; PCP Emergency Medicine
DX: R30.0 Dysuria (principal); K21.9 Gastro-esophageal reflux disease without esophagitis; G47.33 Obstructive sleep apnea (adult) (pediatric); F17.210 Nicotine dependence, cigarettes, uncomplicated
CPT/HCPCS: 81003; 87491; 87591; 87661; 99283

== ENCOUNTER 2025-03-16 00:58 | Observation (INO) | payer OTHER, SELFPAY ==
[2025-03-16] VITALS (16 sets, daily range): BP systolic 103–124; BP diastolic 55–73; PULSE 81–88; RESP 14–19; TEMP 36.4–36.6; O2SAT 56–100; BMI 26.4
--- NOTE | ~2025-03-16 | CT_ITS ---
Examination: CTA abd aorta runoff Clinical History: right foot wound Technique: Helical images lung bases to feet 150 mL Omnipaque 350 Coronal, sagittal reformats. Multiplanar MIPS CT images acquired with automatic exposure control for dose reduction DLP: 1041 mGy-cm Comparison: None Findings: CTA Findings: Abdominal aorta: No aneurysm or dissection. Celiac: Patent. SMA: Patent. PINEDA: Patent. Renal arteries: Patent. Common iliac arteries: Patent. External iliac arteries: Patent. Hypogastrics: Patent. CFAs: Patent. SFAs: Patent. Profundas: Patent. Popliteal arteries: Patent. Runoff: Three-vessel runoff bilaterally. Non-CTA findings: Lung bases: Airspace disease left lung worse, with bronchial occlusions. Visualized heart and pericardium: Unremarkable. Liver: Enlarged. Steatosis. Gallbladder: Unremarkable. Spleen: Unremarkable. Pancreas: Unremarkable. Adrenal glands: Unremarkable. Kidneys: Right kidney- No renal stones. No hydronephrosis. Left kidney- No renal stones. No hydronephrosis. Distal esophagus/stomach: Unremarkable. Small bowel loops: Normal caliber and wall thickness. Colon: Normal caliber and wall thickness. Appendix not definitely seen. Nodes: No enlarged nodes. Small inguinal nodes, right leg worse Peritoneum: No ascites. No free air. Urinary bladder: Unremarkable. Prostate: Unremarkable. Bones: No acute bony abnormality. Soft tissues: Bilateral lower extremity skin thickening and interstitial edema, right leg worse. IMPRESSION: 1. Patent bilateral lower extremity arteries without significant stenosis at any level. Three-vessel runoff bilaterally. 2. Aspiration pneumonia. Reviewed, dictated and finalized at location R. IMPRESSION: 1. Patent bilateral lower extremity arteries without significant stenosis at a ny level. Three-vessel runoff bilaterally. 2. Aspiration pneumonia.
--- NOTE | ~2025-03-16 | US_ITS ---
EXAMINATION: US venous doppler LE RT, 03/16/2025 9:03 CDT HISTORY: diffuse swelling COMPARISON: None Technique: [place]-scale and color Doppler images were attempted of the lower saphenofemoral junction, common femoral vein,superficial femoral vein, proximal deep femoral vein, proximal deep femoral vein, popliteal vein and posterior tibial veins. Findings: Deep Venous System:Normal flow, augmentation and compressibility. No echogenic thrombus identified. Superficial Venous SystemNo superficial thrombophlebitis. Soft tissues: Soft tissues are unremarkable. Impression: Negative for DVT. Reviewed, dictated and finalized at location P. Impression: Negative for DVT.
--- OUTSIDE RECORDS SUMMARY | 2025-03-16 01:00 | XMS_ITS | Clinical Summary ---
Author Organization [facility] Address [address] [place] [address] Care Team Providers Care Refinisher Name Role Phone No, Physician Primary Care Provider Allergies No known active allergies Medications gabapentin (NEURONTIN) 100 mg capsuleIndicati ons:Neuropathic Pain Take 1 capsule (100 mg total) by mouth 3 (three) times a day 90 capsule 04/22/2024 Active buprenorphine-n aloxone (SUBOXONE) 8-2 mg per filmIndications :Opioid Withdrawal Symptoms Place 1 Film under the tongue 2 (two) times a day for 7 days 14 Film 04/22/2024 Active hydrOXYzine (ATARAX) 25 mg tablet Take 1 tablet (25 mg total) by mouth 3 (three) times a day as needed for anxiety 20 tablet 04/22/2024 Active baclofen (LIORESAL) 10 mg tablet Take 1 tablet (10 mg total) by mouth 3 (three) times a day as needed for muscle spasms 90 tablet 3 07/01/[address] (CYMBALTA) 30 mg capsule Take 1 capsule (30 mg total) by mouth daily 30 capsule 11 07/01/2024 Active ibuprofen (ADVIL,MOTRIN) 800 mg tablet Take 1 tablet (800 mg total) by mouth 3 (three) times a day as needed for pain (pain) 30 tablet 07/01/2024 Active Active Problems Problem Noted Date Diagnosed Date Cervical stenosis of spinal canal 04/21/2024 Left arm weakness 04/20/2024 Shortness of breath 04/18/2024 Substance use disorder 04/18/2024 Progressive focal motor weakness 04/17/2024 Subarachnoid hemorrhage 01/10/2023 Brain lesion 01/10/2023 Seizures 04/17/2018 Surgical History Surgery Date Site/Laterality Comments HAND SURGERY Social History Tobacco Use Types Packs/Day Years Used Date Smoking Tobacco: Every Day Cigarettes Tobacco Cessation:Ready to Q uit: Not Asked; Counseling Given: Not Answered Alcohol Use Standard Drinks/Week Comments Not Currently 0 (1 standard drink = 0.6 oz pur e alcohol) [facility] Utilities Answer Date Recorded In the past 12 months has th e electric, gas, oil, or water [facility] threatened to shut off services in your home? No 04/20/2024 Social Connection and Isolation Panel Answer Date Recorded In a typical week, how many times do you talk on the phone with family, friends, or neighbors? More than three times a week 04/20/2024 How often do you get togethe r with friends or relatives? More than three times a week 04/20/2024 How often do you attend [facility] or latter-day services? Never 04/20/2024 Do you belong to any clubs o r organizations such as hindu groups, unions, fraternal or athletic groups, or school groups? No 04/20/2024 How often do you attend meet ings of the clubs or organizations you belong to? Never 04/20/2024 Are you , , di vorced, , never , or living with a partner? Never 04/20/2024 AUDIT-C Answer Date Recorded Q1: How often do you have a drink containing alcohol? Never 04/17/2024 Q2: How many drinks containi ng alcohol do you have on a typical day when you are drinking? Patient does not drink Q3: How often do you have si x or more drinks on one occasion? Never 04/17/2024 Overall Financial Resource Strain (CARDIA) Answe r Date Recorded How hard is it for you to pa y for the very basics like food, housing, medical care, and heating? Not very hard 04/20/2024 Hunger Vital Sign Answer Date Recorded Within the past 12 months, y ou worried that your food would run out before you got the money to buy more. Never true 04/20/20 24 Within the past 12 months, t he food you bought just didn't last and you didn't have money to get more. Never true 04/20/2024 PRAPARE - Transportation Answer Date Re corded In the past 12 months, has l ack of transportation kept you from medical appointments or from getting medications? No 04/09 In the past 12 months, has l ack of transportation kept you from meetings, work, or from getting things needed for daily living? No 04/20/2024 Housing Stability Vital Sign Answer Juventino e Recorded In the last 12 months, was t here a time when you were not able to pay the mortgage or rent on time? No 04/20/2024 In the past 12 months, how m any times have you moved where you were living? 0 04/20/2024 At any time in the past 12 m [facility], were you homeless or living in a skilled nursing (including now)? No 04/20/2024 Personal Safety Answer Date Recorded Have you ever been in or are you currently in a harmful physical or emotional relationship or is someone making you feel afraid or unsafe? Denies 04/17/2024 Sex and Gender Information Value Date Recorded Sex Assigned at Not on file Legal Sex Male 6:34 PM REPOSSESSOR Gender Identity Not on file Sexual Orientation Not on file Obstetrics History Last Filed Vital Signs Vital Sign Reading Time Taken Comments Blood Pressure 130/80 07/01/2024 3:14 PM REPOSSESSOR Pulse 112 07/01/2024 3:14 PM REPOSSESSOR Temperature 36.9 C (98.4 F) 04/22/2024 7:32 AM REPOSSESSOR Respiratory Rate 18 04/22/2024 7:32 AM REPOSSESSOR Oxygen Saturation 97% 04/22/2024 7:32 AM REPOSSESSOR Inhaled Oxygen Concentration - - Weight 72.6 kg (160 lb) 07/01/2024 3:14 PM REPOSSESSOR Height 162.6 cm (5' 4) 07/01/2024 3:14 PM REPOSSESSOR Body Mass Index 27.46 07/01/2024 3:14 PM REPOSSESSOR Plan of Treatment Health Maintenance Due Date Last Done Comments Colon Cancer Screening-Colonoscopy 1975 Depression Screening 1975 DTaP/Tdap/Td Vaccine (1 - Tdap) 12/16/1986 Hepatitis B Screening 12/16/1993 Regular Well Visit/Exam 18-64 12/16/1993 Pneumococcal vaccine <65 (1 of 2 - PCV) 12/16/1994 Influenza Vaccine (#1) 2025 04/19/2018 Hepatitis C Screening Completed 04/18/2024 Procedures Procedure Name Priority Date/Time Associated Diagnosis Comments HEPATITIS PANEL, ACUTE Routine 04/18/2024 7:01 AM REPOSSESSOR from Last 3 Months or Most Recently Relevant to Health Maintenance Results * Hepatitis panel, acute Blood (04/18/2024 7:01 AM REPOSSESSOR) Hep A IgM Nonreactive Nonreactive Comment: Interpretive Data: If Hep A IgM Ab is reported as Equivocal, a new sample should be drawn in two weeks for testing. Current interpretive data was last revised on 19. Hep B core IgM Nonreactive Nonreactive [facility] Comment: Interpretive Data If HepB Core IgM Ab is reported as Equivocal, a new sample should be drawn in two weeks for testing. Current interpretive data was last revised on 19. Hep C Ab Nonreactive Nonreactive [facility] Comment: Antibodies to HCV not detected. Does NOT exclude the possibility of recent exposure to HCV. Current interpretive data was last revised on 22 Interpretive Data Nonreactive: Antibodies to HCV not detected. Does NOT exclude the possibility of recent exposure to HCV. Equivocal: Equivocal for HCV antibodies. Supplemental molecular testing will be automatically performed to determine infection status in accordance with current CDC screening recommendations. Reactive: Positive for HCV antibodies. This may represent current or past HCV infection. Supplemental molecular testing will be automatically performed to determine current infection status in accordance with current CDC screening recommendations. Interpretive data was last revised on 2019. HepBsAg Nonreactive Nonreactive NATASHA Blood 04/18/2024 7:01 AM REPOSSESSOR 04/18/2024 7:05 AM REPOSSESSOR us Malika Karimi NP LAB MICROBIOLOGY - GENE RAL ORDERABLES Final Result NATASHA [address] [facility] Department [place] [address] from Last 3 Months or Most Recently Relevant to Health Maintenance Insurance [employer] [facility] Advance Directives For more information, please contact: [phone] * Full Code (Latest Code Status on File) Date Activated Date Inactivated Comments 04/17/2024 8:58 AM 04/22/2024 2:30 PM * Full Code Date Activated Date Inactivated Comments 01/10/2023 1:58 PM 01/13/2023 2:55 PM Care Teams Refinisher Relationship Specialty Start Date End Date No, Physician PCP - General 02/12/24
--- OUTSIDE RECORDS SUMMARY | 2025-03-16 01:00 | XMS_ITS | Clinical Summary ---
Author Organization [facility] Address [facility] [place] [address] Care Team Providers Care Flying Teacher Name Role Phone None, Provider MD Primary Care Provider Unavaila ble Allergies No known active allergies Social History Tobacco Use Types Packs/Day Years Used Date Smoking Tobacco: Every Day Cigarettes Smokeless Tobacco: Never Tobacco Cessation:Ready to Q uit: No; Counseling Given: No Alcohol Use Standard Drinks/Week Comments Never 0 (1 standard drink = 0.6 oz pur e alcohol) Sex and Gender Information Value Date Recorded Sex Assigned at Not on file Legal Sex Male 8:30 PM CDT Gender Identity Not on file Sexual Orientation Not on file Last Filed Vital Signs Vital Sign Reading Time Taken Comments Blood Pressure 133/77 02/23/2024 12:45 AM CDT Pulse 97 02/23/2024 12:45 AM CDT Temperature 36.9 C (98.4 F) 02/23/2024 12:45 AM CDT Respiratory Rate 18 02/23/2024 12:45 AM CDT Oxygen Saturation 100% 02/23/2024 12:45 AM CDT Inhaled Oxygen Concentration - - Weight 68 kg (150 lb) 02/22/2024 8:34 PM CDT Height 162.6 cm (5' 4) 02/22/2024 8:34 PM CDT Body Mass Index 25.75 02/22/2024 8:34 PM CDT Plan of Treatment Health Maintenance Due Date Last Done Comments Colorectal Cancer Screening Colonoscopy (10 Years) 1975 Annual Physical 12/16/1978 Hepatitis C 12/16/1993 DTaP, Tdap and Td Vaccines ( 1 - Tdap) 12/16/1994 Hepatitis B Vaccines (1 of 3 - 19+ 3-dose series) 12/16/1994 Pneumococcal Vaccine: Pediat rics (0 to 5 Years) and At-Risk Patients (6 to 49 Years) (1 of 2 - PCV) 12/16/1994 COVID-19 Vaccine ( - 2023-2 5 season) 2025 Influenza Adult (#1) 2025 Meningococcal B Vaccine Aged Out No l onger eligible based on patient's age to complete this topic Meningococcal Vaccine Aged Out No renzo emi eligible based on patient's age to complete this topic RSV Immunizations Under 20 Months Aged Out No longer eligible based on patient's age to complete this topic Insurance MEDICAID Care Teams Flying Teacher Relationship Specialty Start Date End Date None, Provider, MD PCP - General UNKNOWN PHYSICIAN SPECIALTY 02/22/24
--- NOTE | 2025-03-16 02:10 | ED_ITS ---
HPI - General Adult General Chief complaint: Wound/Laceration Stated complaint: right foot infection Time Seen by Provider: 03/16/25 01:44 History of Present Illness HPI narrative: Patient is a 49-year-old gentleman presents emergency department chief complaint of right foot infection the patient states that his socks got wet a few days ago and he walked in wet socks for extended period of time the patient reports that he has redness and swelling to his foot reports that he has skin that is sloughing off on the bottom of his foot as well patient reports that he is not a diabetic but does report that he has had athlete's foot in the past the patient denies fever Related Data Home Medications ?Medication ?Instructions ?Recorded ?Confirmed ?Last Taken ?Type No Home Medications 04/26/21 04/26/21 U nknown History Allergies Allergy/AdvReac Type Severity Reaction Status Date / Time No Known Allergies Allergy Verified 03/16/25 00:59 Review of Systems 2 Review of Systems: A 10 system review of systems was completed on the patient and is negative except for what is stated in the HPI. Nursing and ancillary documentation was reviewed. [facility] Past Medical History Medical History Obstructive sleep apnea GERD (gastroesophageal reflux disease) Surgical History Surgical History H/O eye surgery At 5 years old correct lazy eye Family History Family History Other No significant family history Social History Social History Social History: He is single and lives alone. 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 He has smoked a half a pack of cigarettes per day since the age of 15. He denies any significant alcohol use. He snorts heroin on a daily basis. Smoking packs per day: 0.5 Smoking cigarettes per day: 10.0 Years smoked: 30 Smoking pack-years: 15.00 Smoking status: Current every day smoker Tobacco type: cigarettes Alcohol intake: never Substance use: current Substance use type: marijuana and heroin Other substance usage details: 1-2x per week Spiritual care concerns: No Exam 2 Narrative: GENERAL: Well-appearing, well-nourished, and in no acute distress. HEAD: Normocephalic, atraumatic. EYES: PERRLA and EOMI. ENT: Nares clear, no rhinorrhea or epistaxis. Mucous membranes moist. NECK: Supple. CHEST: Clear to auscultation. No respiratory distress. HEART: Regular rate and rhythm. No murmur heard. Normal peripheral pulses. ABDOMEN: Soft, nontender, nondistended, normal active bowel sounds. EXTREMITIES: Normal range of motion. No edema. SKIN: Warm, dry, no rash. Redness present the right foot at the ankle down to the toes there is no appreciable abscess there is maceration of the tissue NEURO: No focal deficits. Alert and oriented x3. PSYCH: Normal mood and affect. Course Vital Signs Vital signs: Vital Signs Temperature 36.5 C 03/16/25 01:00 Pulse Rate 81 03/16/25 01:00 Respiratory Rate 19 03/16/25 01:00 Blood Pressure 124/68 03/16/25 01:00 Pulse Oximetry 99 03/16/25 01:00 Oxygen Delivery Room Air 03/16/25 01:00 Temperature 36.5 C 03/16/25 01:00 Pulse Rate 81 03/16/25 01:00 Respiratory Rate 19 03/16/25 01:00 Blood Pressure 124/68 03/16/25 01:00 Pulse Oximetry 99 03/16/25 01:00 Oxygen Delivery Room Air 03/16/25 01:00 Medical Decision Making [facility] Narrative Medical decision making narrative: Differential diagnosis includes cellulitis, vascular abnormality, abscess, necrotizing fasciitis CT scan with angiography and runoff was obtained there is good vascular flow to the foot there is no subcu emphysema there is no abscess The patient elevated inflammatory markers patient was started on antibiotics and the case was discussed with the hospitalist for admission Vital Signs Vital Signs: Vital Signs Temperature 36.5 C 03/16/25 01:00 Pulse Rate 81 03/16/25 01:00 Respiratory Rate 19 03/16/25 01:00 Blood Pressure 124/68 03/16/25 01:00 Pulse Oximetry 99 03/16/25 01:00 Oxygen Delivery Room Air 03/16/25 01:00 Temperature 36.5 C 03/16/25 01:00 Pulse Rate 81 03/16/25 01:00 Respiratory Rate 19 03/16/25 01:00 Blood Pressure 124/68 03/16/25 01:00 Pulse Oximetry 99 03/16/25 01:00 Oxygen Delivery Room Air 03/16/25 01:00 Lab Data 03/16/25 02:16 03/16/25 02:16 Labs: Lab Results 03/16/25 03/16/25 03/16/25 Range/Units 02:16 02:16 02:16 WBC 9.6 (4.5-10.0) K/mm3 RBC 4.56 L (4.6-6.20) M/mm3 Hgb 13.7 L (14.0-18.0) g/dL Hct 42.0 (42.0-52.0) % MCV 92.1 (80-100) fl MCH 30.0 (26-34) pg MCHC 32.6 (32-36) g/dl RDW 12.3 (11.5-14.5) % Plt Count 377 H (150-375) k/mm3 MPV 8.5 (7.4-10.4) fl Immature Gran % (Auto) 1.7 H (0-0.5) % Neut % (Auto) 64.5 (45.5-73.1) % Lymph % (Auto) 20.6 (18.3-44.2) % [place] % (Auto) 7.5 (2.6-8.5) % Eos % (Auto) 5.0 H (0-4.4) % Baso % (Auto) 0.7 (0.2-1.2) % Lymph # (Auto) 1.98 (0.9-3.2) K/mm3 [place] # (Auto) 0.7 H (0.1-0.6) K/mm3 Eos # (Auto) 0.5 H (0-0.3) K/mm3 Baso # (Auto) 0.1 (0.0-0.1) K/mm3 Abs Immat Gran (auto) 0.16 H (0.00-0.031) K/mm3 Absolute Neuts (auto) 6.2 (1.3-6.7) K/mm3 Absolute Nucleated RBC 0.000 (0.0-0.012) K/mm3 Nucleated RBC % 0.0 (0.0-0.2) % ESR 65 H (0-20) mm/hr PT 12.8 Cancelled (11.1-14.7) Seconds INR 1.0 Cancelled APTT 30.5 (22.3-36.8) Seconds Sodium 141 (137-145) mmol/L Potassium 3.7 (3.4-5.0) mmol/L Chloride 101 (98-107) mmol/L Carbon Dioxide 32 H (22-30) mmol/L Anion Gap 8 (4-12) mmol/L BUN 13 (9-20) mg/dL Creatinine 0.92 (0.7-1.3) mg/dL Estim Creat Clear Calc 71 ml/min Estimated GFR > 60 (59 - ) Glucose 129 H (65-110) mg/dL Lactic Acid 1.2 (0.7-2.0) mmol/L Calcium 9.5 (8.4-10.2) mg/dL Magnesium 2.2 (1.6-2.3) mg/dL Total Bilirubin 0.4 (0.2-1.3) mg/dL AST 21 (17-59) U/L ALT 17 (6-50) U/L Alkaline Phosphatase 107 (38-126) U/L C-Reactive Protein 5.8 H (<1.0) mg/dL Total Protein 7.6 (6.3-8.2) g/dL Albumin 3.9 (3.5-5.1) g/dL Procalcitonin 0.1 ng/mL Discharge Plan Discharge Clinical Impression: Cellulitis of foot, right Patient Disposition: Still a Patient Condition: Stable Patient Language: Bulgarian Prescriptions: No Action No Home Medications Follow-up/Referrals: PHYSICIAN,METALWORKING SPECIALIST [Primary Care Provider, Internal Medicine] Time of Disposition: 04:12
[2025-03-16 02:24] LABS: Hematocrit 42.0 % (42.0-52.0); Hemoglobin 13.7 g/dL (14.0-18.0); Immature Granulocyte Percent A 1.7 % (0-0.5); Lymphocytes Absolute Auto 1.98 K/mm3 (0.9-3.2); Mean Corpuscular HGB Conc 32.6 g/dl (32-36); Mean Corpuscular Hemoglobin 30.0 pg (26-34); Mean Corpuscular Volume 92.1 fl (80-100); Nucleated Red Blood Cells Absolute Auto 0.000 K/mm3 (0.0-0.012); Nucleated Red Blood Cells Perc 0.0 % (0.0-0.2); Platelet Count Result 377 k/mm3 (150-375); Red Blood Count 4.56 M/mm3 (4.6-6.20); White Blood Count 9.6 K/mm3 (4.5-10.0)
[2025-03-16 02:34] LABS: INR 1.0; Prothrombin Time 12.8 Seconds (11.1-14.7)
[2025-03-16 02:35] LABS: Partial Thromboplastin Time 30.5 Seconds (22.3-36.8)
[2025-03-16 02:36] LABS: Alanine Aminotransferase 17 U/L (6-50); Albumin Level 3.9 g/dL (3.5-5.1); Alkaline Phosphatase 107 U/L (38-126); Anion Gap 8 mmol/L (4-12); Aspartate Amino Transferase 21 U/L (17-59); Bilirubin,Total 0.4 mg/dL (0.2-1.3); Blood Urea Nitrogen 13 mg/dL (9-20); CRP 5.8 mg/dL (<1.0); Calcium 9.5 mg/dL (8.4-10.2); Carbon Dioxide 32 mmol/L (22-30); Chloride 101 mmol/L (98-107); Estimated CRCL calculation 71 ml/min; Estimated Glomerular Filt Rate > 60; Glucose 129 mg/dL (65-110); Magnesium 2.2 mg/dL (1.6-2.3); Potassium 3.7 mmol/L (3.4-5.0); Sodium 141 mmol/L (137-145); Total Protein 7.6 g/dL (6.3-8.2)
[2025-03-16] MEDS: SODIUM CHLORIDE 0.9% IV 1,000 ML 999 ML IV CONT (02:49)
[2025-03-16 02:53] LABS: Procalcitonin 0.1 ng/mL
[2025-03-16] MEDS: metroNIDAZOLE 500 MG/ISO 100ML 500 MG/100 ML BAG 100 MG IVPB ×2 (04:32→12:35)
[2025-03-16] MEDS: CEFEPIME 2 GM in SODIUM CHLORIDE 0.9% IV 50 ML 100 ML IVPB (04:33)
--- NOTE | 2025-03-16 05:18 | ADMGEN ---
This patient, Chun Willis, was admitted to [facility] Room 310-01. Patient/family oriented to hospital policies and general routines including ID bracelet, bed and alarms, visiting hours, pain management, procedures, bathroom and other care routines, personal items, smoking policy, room service/diet, and visiting hours. Information on how to activate the Rapid Response Team has been discussed. Patient/Family are encouraged to report perceived risks to care and to ask questions if they do not understand what they are told or what they should do.
--- NOTE | 2025-03-16 06:09 | P.HP_ITS ---
H&P: HPI History of Present Illness Date/Time: 03/16/25 06:09 Chief Complaint: Right foot pain and swelling Narrative: For 9-year-old male with PMH polysubstance abuse, septic left thumb IP joint in osteomyelitis due to group a strep status post washout presents to [facility] ER on 03/16/2025 complaining of right foot pain and swelling. The patient is a poor historian and does not provide much history. History of snorting heroin, smoking tobacco, unclear if he is still doing this. He reports he got his sock wet and walked around with with socks. He began to experience swelling and redness in his right foot and the skin began to blister and then slough off. Your evaluation reveals normal WBC, procalcitonin 0.1, lactic acid 1.2, serum creatinine 0.92, CRP 5.8. CTA abdomen with aorta runoff demonstrates mild atherosclerotic calcification in the aorta without significant stenosis. There is diffuse subcutaneous edema throughout the right calf and ankle, extended to the dorsum of the foot. No loculations, no subcutaneous emphysema. Suspected left lower lobe pneumonia. The patient actively cough during the exam. He was given cefepime 2 g, vancomycin, metronidazole 500 mg, 1 L normal saline bolus. Review of Systems Review of Systems: All systems reviewed & are unremarkable except as noted in HPI and below (Subjective) PMFSH Past Medical History Medical History Obstructive sleep apnea GERD (gastroesophageal reflux disease) Surgical History Surgical History H/O eye surgery At 5 years old correct lazy eye Family History Family History Other No significant family history Social History Social History Social History: He is single and lives alone. 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 He has smoked a half a pack of cigarettes per day since the age of 15. He denies any significant alcohol use. He snorts heroin on a daily basis. Smoking packs per day: 0.5 Smoking cigarettes per day: 10.0 Years smoked: 34 Smoking pack-years: 17.00 Smoking status: Current every day smoker Tobacco type: cigarettes Alcohol intake: former Substance use: current Substance use type: marijuana and other Other substance usage details: fentynl Last use: 9pm 03/15 Lack of Transportation: No Lack of Food: Sometimes True Current Housing: I Have Housing Concerned About Future Housing: No Difficulty Paying Gas/Electric Bills: YES Difficulty Paying for Meds: YES Currently Unemployed: YES Education: High School Diploma/GED Difficulty w/ Childcare or Family Care: No Spiritual care concerns: No Meds Home Medications and Allergies Home Medications ?Medication ?Instructions ?Recorded ?Confirmed ?Type baclofen 10 mg tablet mg PO PRN 03/16/25 History hydroxyzine HCl 25 mg tablet mg PO PRN 03/16/25 Histo ry Allergies Allergy/AdvReac Type Severity Reaction Status Date / Time No Known Allergies Allergy Verified 03/16/25 00:59 Vital Signs Vital Signs - 24 hr 03/16/25 01:00 03/16/25 01:16 03/16/25 01:17 Temperature 97.7 F Pulse Rate 81 Respiratory Rate 19 Blood Pressure 124/68 105/64 Pulse Oximetry 99 100 100 Oxygen Delivery Room Air 03/16/25 01:43 03/16/25 01:45 03/16/25 03:29 Temperature Pulse Rate Respiratory Rate Blood Pressure Pulse Oximetry 100 100 56 L Oxygen Delivery 03/16/25 03:58 03/16/25 04:00 03/16/25 04:01 Temperature Pulse Rate Respiratory Rate Blood Pressure 103/55 L Pulse Oximetry 100 100 92 Oxygen Delivery 03/16/25 04:16 03/16/25 04:31 03/16/25 04:46 Temperature Pulse Rate Respiratory Rate Blood Pressure 111/64 108/69 105/67 Pulse Oximetry Oxygen Delivery 03/16/25 05:01 Temperature Pulse Rate Respiratory Rate Blood Pressure 115/73 Pulse Oximetry Oxygen Delivery Exam Const: General: comfortable and no acute distress HENMT: Mouth: Yes moist mucous membranes Eyes: Pupils: Equal, round and reactive pupils present Neck: Neck: supple Resp: Effort & Inspection: normal respiratory effort Auscultation: clear to auscultation bilaterally Cardio: Rate: regular rate Rhythm: regular rhythm GI: Inspection: non-distended GI Palp: Yes Soft to palpation Neuro: Motor exam (neuro): 5/5 motor strength present throughout Extrem: Other: Right lower extremity edema distal to the knee, worse at the foot with circumferential swelling. Erythema. Sloughing of skin, some blisters around the toe, tenderness to palpation, pounding dorsalis pedis pulse. H&P: Results Labs Labs: Short CBC 03/16/25 Range/Units 02:16 WBC 9.6 (4.5-10.0) K/mm3 Hgb 13.7 L (14.0-18.0) g/dL Hct 42.0 (42.0-52.0) % Plt Count 377 H (150-375) k/mm3 BMP 03/16/25 02:16 Sodium 141 Potassium 3.7 Chloride 101 Carbon Dioxide 32 H BUN 13 Creatinine 0.92 Glucose 129 H Calcium 9.5 Liver Function 03/16/25 Range/Units 02:16 Total Bilirubin 0.4 (0.2-1.3) mg/dL AST 21 (17-59) U/L ALT 17 (6-50) U/L Alkaline Phosphatase 107 (38-126) U/L Albumin 3.9 (3.5-5.1) g/dL Assessment and Plan Assessment and plan (1) Cellulitis of foot, right: Code(s): L03.115 - Cellulitis of right lower limb Status: Acute (2) Community acquired pneumonia: Code(s): J18.9 - Pneumonia, unspecified organism Status: Acute Plan For 9-year-old male with PMH polysubstance abuse, septic left thumb IP joint in osteomyelitis due to group a strep status post washout presents to [facility] ER on 03/16/2025 complaining of right foot pain and swelling. The patient is a poor historian and does not provide much history. History of snorting heroin, smoking tobacco, unclear if he is still doing this. He reports he got his sock wet and walked around with with socks. He began to experience swelling and redness in his right foot and the skin began to blister and then slough off. Your evaluation reveals normal WBC, procalcitonin 0.1, lactic acid 1.2, serum creatinine 0.92, CRP 5.8. CTA abdomen with aorta runoff demonstrates mild atherosclerotic calcification in the aorta without significant stenosis. There is diffuse subcutaneous edema throughout the right calf and ankle, extended to the dorsum of the foot. No loculations, no subcutaneous emphysema. Suspected left lower lobe pneumonia. The patient actively cough during the exam. He was given cefepime 2 g, vancomycin, metronidazole 500 mg, 1 L normal saline bolus. ----- Continue cefepime, metronidazole, vancomycin. Tylenol p.r.n.. Cautious with narcotics in the setting of possible heroin abuse. Consider care coordination consult. Check right lower extremity venous Doppler to rule out DVT. No evidence of necrotizing fasciitis, monitor for improvement. Follow-up blood culture. Community-acquired pneumonia likely, continue antibiotics. ----- Full code. Saline lock IV. Heparin 5000 units subQ b.i.d. Hospitalist [facility] Advance Care Plan I have confirmed that the patient's Advanced Care Plan is present, code status is documented, or surrogate decision maker is listed in patient medical record.: Yes Medication Reconciliation I have utilized all available resources to obtain, update and review the patients current medications (includes all prescriptions, OTC, herbals, cannabis, and nutritional supplements).: Yes
[2025-03-16] MEDS: VANCOMYCIN 1,750 MG/NS 500 ML 1,750 MG/500 ML BAG 250 MG IVPB (06:22)
[2025-03-16 06:50] LABS: Add Urine Microscopic? NO; Appearance Urine Clear (Clear); Glucose Urine UA Negative (Negative); Leukocyte Esterase Ur Negative LEU/UL (Negative); Nitrate Urine Negative (Negative); Specific Grav Ur > 1.045 (1.001-1.035)
--- NOTE | 2025-03-16 07:43 | P.PNIM_ITS ---
Progress Note: A&P Assessment and Plan (1) Cellulitis of foot, right: Code(s): L03.115 - Cellulitis of right lower limb Status: Acute Assessment and Plan: * Continue cefepime, metronidazole, vancomycin * Cautious with narcotics in the setting of possible heroin abuse * The venous Doppler ultrasound: Negative for DVT * No evidence of necrotizing fasciitis, monitor for improvement * Follow-up blood culture * Tylenol p.r.n. (2) Community acquired pneumonia: Code(s): J18.9 - Pneumonia, unspecified organism Status: Acute Assessment and Plan: * Aorta with runoff CTA: Patent bilateral lower extremity arteries without significant stenosis at any level, aspiration pneumonia * started on CAP tx: azithromycin & ceftriaxone * no supplemental O2 requirement * supportive treatment * trend labs * Monitor vital signs, I&Os, neuro status and patient is a fall risk * Follow WBC, serum electrolytes, temperature curves and cultures * Gentle IV fluid resuscitation * Continue cefepime, metronidazole, vancomycin. Plan Full code. Saline lock IV. Heparin 5000 units subQ b.i.d. Subjective Date/time seen: 03/16/25 07:43 Interval history: 49-year-old male with PMH polysubstance abuse, septic left thumb IP joint in osteomyelitis due to group a strep status post washout presents to [facility] ER on 03/16/2025 complaining of right foot pain and swelling. The patient is a poor historian and does not provide much history. 03/16/2025 Patient sitting comfortably in bed at time examination. States that his redness and swelling have improved since yesterday. Endorsing some shortness of breath today as well as a slight nonproductive cough. He remains afebrile without leukocytosis, no 02 requirement. Continue IV antibiotics -will look to deescalate if he continues to improve. Review of Systems Review of Systems: All systems reviewed & are unremarkable except as noted in HPI and below (Subjective) Exam Const: General: comfortable and no acute distress HENMT: Mouth: Yes moist mucous membranes Eyes: Pupils: Equal, round and reactive pupils present Neck: Neck: supple Resp: Effort & Inspection: normal respiratory effort Auscultation: clear to auscultation bilaterally Cardio: Rate: regular rate Rhythm: regular rhythm GI: Inspection: non-distended Neuro: Cranial nerves: Yes Equal, round and reactive pupils present Motor exam (neuro): 10/11 motor strength present throughout Extrem: Other: Right lower extremity edema distal to the knee, worse at the foot with circumferential swelling. Erythema. Sloughing of skin, some blisters around the toe, tenderness to palpation, pounding dorsalis pedis pulse. Objective Data Vital Signs Vital Signs: Vital Signs - 24 hr 03/16/25 01:00 03/16/25 01:16 03/16/25 01:17 Temperature 97.7 F Pulse Rate 81 Respiratory Rate 19 Blood Pressure 124/68 105/64 Pulse Oximetry 99 100 100 Oxygen Delivery Room Air 03/16/25 01:43 03/16/25 01:45 03/16/25 03:29 Temperature Pulse Rate Respiratory Rate Blood Pressure Pulse Oximetry 100 100 56 L Oxygen Delivery 03/16/25 03:58 03/16/25 04:00 03/16/25 04:01 Temperature Pulse Rate Respiratory Rate Blood Pressure 103/55 L Pulse Oximetry 100 100 92 Oxygen Delivery 03/16/25 04:16 03/16/25 04:31 03/16/25 04:46 Temperature Pulse Rate Respiratory Rate Blood Pressure 111/64 108/69 105/67 Pulse Oximetry Oxygen Delivery 03/16/25 05:01 03/16/25 06:00 Temperature 97.5 F L Pulse Rate 88 Respiratory Rate 14 Blood Pressure 115/73 104/73 Pulse Oximetry 100 Oxygen Delivery Intake/Output Intake/Output: Intake & Output 03/13/25 03/14/25 03/15/25 03/16/25 23:59 23:59 23:59 23:59 Intake Total 1050 Balance 1050 Meds/Results Medications: Active Medications Generic Name Dose Route Start Last Admin Trade Name Freq PRN Reason Stop Dose Admin Acetaminophen 650 mg 03/16/25 04:12 Acetaminophen 325 Mg Tablet PO Q4H PRN Mild Pain (1-3) or Fever Heparin Sodium (Porcine) 5,000 units 03/16/25 09:00 Heparin Sodium 5,000 Units/Ml Vial SUB-Q Q12HR ZULEMA Cefepime HCl 2 gm/ Sodium 50 mls @ 100 mls/hr 03/16/25 17:00 Chloride IVPB Q12H ZULEMA Metronidazole 500 mg in 100 mls @ 100 mls/hr 03/16/25 13:00 Flagyl 500 Mg/Iso Soln 100 Ml IVPB Q8HR ZULEMA Vancomycin HCl 1,500 mg in 500 mls @ 250 mls/hr 03/17/25 00:00 Vancomycin 1,500 Mg/Ns 500 Ml IVPB Q18H ZULEMA Ondansetron HCl 4 mg 03/16/25 04:12 Ondansetron Inj 4 Mg/2 Ml Vial IV PUSH Q4H PRN Nausea Labs Labs: Laboratory Results - last 24 hr 03/16/25 03/16/25 03/16/25 02:16 02:16 02:16 WBC 9.6 RBC 4.56 L Hgb 13.7 L Hct 42.0 MCV 92.1 MCH 30.0 MCHC 32.6 RDW 12.3 Plt Count 377 H MPV 8.5 Immature Gran % (Auto) 1.7 H Neut % (Auto) 64.5 Lymph % (Auto) 20.6 [place] % (Auto) 7.5 Eos % (Auto) 5.0 H Baso % (Auto) 0.7 Lymph # (Auto) 1.98 [place] # (Auto) 0.7 H Eos # (Auto) 0.5 H Baso # (Auto) 0.1 Abs Immat Gran (auto) 0.16 H Absolute Neuts (auto) 6.2 Absolute Nucleated RBC 0.000 Nucleated RBC % 0.0 ESR 65 H PT 12.8 Cancelled INR 1.0 Cancelled APTT 30.5 Sodium 141 Potassium 3.7 Chloride 101 Carbon Dioxide 32 H Anion Gap 8 BUN 13 Creatinine 0.92 Estim Creat Clear Calc 71 Estimated GFR > 60 Glucose 129 H Lactic Acid 1.2 Calcium 9.5 Magnesium 2.2 Total Bilirubin 0.4 AST 21 ALT 17 Alkaline Phosphatase 107 C-Reactive Protein 5.8 H Total Protein 7.6 Albumin 3.9 Procalcitonin 0.1 Urine Color Urine Appearance Urine pH Ur Specific [place] Urine Protein Urine Glucose (UA) Urine Ketones Ur Blood (Man) Urine Nitrate Urine Bilirubin Urine Urobilinogen Leukocyte Esterase Rfl 03/16/25 06:20 WBC RBC Hgb Hct MCV MCH MCHC RDW Plt Count MPV Immature Gran % (Auto) Neut % (Auto) Lymph % (Auto) [place] % (Auto) Eos % (Auto) Baso % (Auto) Lymph # (Auto) [place] # (Auto) Eos # (Auto) Baso # (Auto) Abs Immat Gran (auto) Absolute Neuts (auto) Absolute Nucleated RBC Nucleated RBC % ESR PT INR APTT Sodium Potassium Chloride Carbon Dioxide Anion Gap BUN Creatinine Estim Creat Clear Calc Estimated GFR Glucose Lactic Acid Calcium Magnesium Total Bilirubin AST ALT Alkaline Phosphatase C-Reactive Protein Total Protein Albumin Procalcitonin Urine Color Yellow Urine Appearance Clear Urine pH 6.5 Ur Specific [place] > 1.045 H Urine Protein Negative Urine Glucose (UA) Negative Urine Ketones Negative Ur Blood (Man) Negative Urine Nitrate Negative Urine Bilirubin Negative Urine Urobilinogen 1.0 Leukocyte Esterase Rfl Negative
[2025-03-16 09:05] LABS: Hematocrit 36.6 % (42.0-52.0); Hemoglobin 11.8 g/dL (14.0-18.0); Immature Granulocyte Percent A 1.7 % (0-0.5); Lymphocytes Absolute Auto 1.60 K/mm3 (0.9-3.2); Mean Corpuscular HGB Conc 32.2 g/dl (32-36); Mean Corpuscular Hemoglobin 30.1 pg (26-34); Mean Corpuscular Volume 93.4 fl (80-100); Nucleated Red Blood Cells Absolute Auto 0.000 K/mm3 (0.0-0.012); Nucleated Red Blood Cells Perc 0.0 % (0.0-0.2); Platelet Count Result 310 k/mm3 (150-375); Red Blood Count 3.92 M/mm3 (4.6-6.20); White Blood Count 7.1 K/mm3 (4.5-10.0)
[2025-03-16 09:21] LABS: Alanine Aminotransferase 13 U/L (6-50); Albumin Level 2.9 g/dL (3.5-5.1); Alkaline Phosphatase 95 U/L (38-126); Anion Gap 4 mmol/L (4-12); Aspartate Amino Transferase 18 U/L (17-59); Bilirubin,Total 0.2 mg/dL (0.2-1.3); Blood Urea Nitrogen 10 mg/dL (9-20); Calcium 8.4 mg/dL (8.4-10.2); Carbon Dioxide 28 mmol/L (22-30); Chloride 105 mmol/L (98-107); Estimated CRCL calculation 82 ml/min; Estimated Glomerular Filt Rate > 60; Glucose 95 mg/dL (65-110); Potassium 3.9 mmol/L (3.4-5.0); Sodium 137 mmol/L (137-145); Total Protein 5.9 g/dL (6.3-8.2)
== END 2025-03-16 14:50 | disposition left against medical advice (07) ==
LOC: ANHED 04:14 → ANH3MEDSUR 04:46
PROVIDERS: Physician Assistant; Admitting Provider General Practice; Emergency Provider Emergency Medicine; Visit Provider General Practice
DX: L03.115 Cellulitis of right lower limb (principal); J18.9 Pneumonia, unspecified organism; K21.9 Gastro-esophageal reflux disease without esophagitis; G47.33 Obstructive sleep apnea (adult) (pediatric); F17.210 Nicotine dependence, cigarettes, uncomplicated; Z53.29 Procedure and treatment not carried out because of patient's decision for other reasons
CPT/HCPCS: 36415; 75635; 80053; 81003; 83605; 83735; 84145; 85025; 85610; 85652; 85730; 86140; 93971; 96361; 96365; 96372; 96375; 96376; 99285; G0378; G0379; J0692; J1644; J1836; J3373; J7030; Q9967